=== PATIENT | male | born 1965 | race Caucasian/White ===

== ENCOUNTER 2022-08-31 05:37 | Emergency (ER) | payer MEDICAID ==
[~2022-08-31] VITALS: Ht 152.4 cm; Wt 66.7 kg
[2022-08-31 05:45] VITALS: BP 154/114
--- NOTE | 2022-08-31 05:45 | NUR ---
noted bilat eye redness since last night, has been coughing and noticed eye redness. Tolerating R/A well with no resp. distress. Safety measures in place.
--- NOTE | 2022-08-31 05:46 | NUR ---
DR MELITA MANN AT PT'S BEDSIDE FOR EVAL
[2022-08-31] MEDS ORDERED: POLY10DR OP (05:56)
[2022-08-31] MEDS ORDERED: BENZ-13 PO (05:56)
--- NOTE | 2022-08-31 06:07 | NUR ---
Patient discharged to home in stable condition. Written and verbal after care instructions given. Patient verbalizes understanding of instruction.
== END 2022-08-31 06:08 | disposition home or self-care (01) ==
LOC: ER 05:37
DX: J06.9 Acute upper respiratory infection, unspecified (principal); H11.32 Conjunctival hemorrhage, left eye